=== PATIENT | female | born 1980 | race Caucasian/White ===

== ENCOUNTER → 2017-10-28 | Outpatient (CLI) | payer SELFPAY ==
[~2017-10-28] MED LIST: ALBU8.5H8 IH; BUSP10TA3 PO; CHOL100044 PO; CYCL10 PO; FLUT1DIS IH; GLUC-172 PO; HYDR25TA PO; IOPAMIDOL-370 75 ML VIAL IV ONE; MELO-108 PO; OMEG300C3 PO; QUET100T PO; VITA100T5 PO; VITA1CAP85 PO; VIVANSE PO
== END | disposition home or self-care (01) ==
LOC: RAH 13:30
PROVIDERS: ATTEND Otolaryngology
DX: R59.0 Localized enlarged lymph nodes (principal)
CPT/HCPCS: 70491; Q9967

== ENCOUNTER → 2023-03-13 | Outpatient (CLI) | payer BC ==
[~2023-03-13] MED LIST changes: -ALBU8.5H8 IH; -CHOL100044 PO; -CYCL10 PO; -FLUT1DIS IH; -GLUC-172 PO; -IOPAMIDOL-370 75 ML VIAL IV ONE; +LEVO-70 PO; +LORA10TA7 PO; -MELO-108 PO; +METR-172 PO; -OMEG300C3 PO; +POSA100T PO; -QUET100T PO; +SENN8.6T32 PO; +TRAZ150T79 PO; +VALA500T42 PO; -VITA100T5 PO; +VITA1CAP50 PO; -VITA1CAP85 PO; -VIVANSE PO; +[UNRECOGNIZED DRUG - OTHER]; +[UNRECOGNIZED DRUG - OTHER]; +magnesium
== END | disposition home or self-care (01) ==
LOC: RAH 08:38
PROVIDERS: ATTEND Internal Medicine
DX: K57.30 Diverticulosis of large intestine without perforation or abscess without bleeding (principal); K56.690 Other partial intestinal obstruction
CPT/HCPCS: 74270